=== PATIENT | male | born 1985 | race Caucasian/White ===

== ENCOUNTER 2019-05-29 19:29 | Inpatient (IN) | payer MEDICAID, OTHER ==
[~2019-05-29] VITALS: Ht 180.3 cm; Wt 105.9 kg
[2019-05-29] MEDS ORDERED: ONDANSETRON HCL 4 MG/2 ML VIAL IVP ONE (19:45)
[2019-05-29 19:48] VITALS: BP_SYST 147
[2019-05-29] MEDS ORDERED: ACETAMINOPHEN 325 MG TABLET PO ONE (20:00)
[2019-05-29] MEDS ORDERED: DIPHENHYDRAMINE INJ 50 MG/ML VIAL IVP ONE (20:00)
[2019-05-29] MEDS ORDERED: NS 500 ML IV ONE ×2 (20:00→22:00)
[2019-05-29 20:41] LABS: BASOPHILS # (AUTO) 0.1 K/uL (0.0-0.2); BASOPHILS % (AUTO) 0.8 % (0.0-2.0); EOSINOPHILS # (AUTO) 0.2 K/uL (0.0-0.4); EOSINOPHILS % (AUTO) 1.7 % (0.0-4.0); HEMATOCRIT 44.4 % (36-54); HEMOGLOBIN 14.8 g/dL (14.0-18.0); LYMPHOCYTES # (AUTO) 2.5 K/uL (1.0-5.5); MEAN CORPUSCULAR HEMOGLOBIN 26 pg (27-31); MEAN CORPUSCULAR HGB CONC 33 % (32-36); MEAN CORPUSCULAR VOLUME 78 fL (79.0-98.0); MONOCYTES # (AUTO) 0.7 K/uL (0.0-1.0); MONOCYTES % (AUTO) 5.1 % (1.7-9.3); NEUTROPHILS # (AUTO) 10.2 K/uL (1.8-7.7); NEUTROPHILS % (AUTO) 74.4 % (40.0-70.0); PLATELET COUNT (AUTO) 170 K/uL (130-430); RED BLOOD CELL COUNT(AUTO) 5.69 MIL/uL (4.2-6.2); RED CELL DISTRIBUTION WIDTH 13.8 % (9.0-15.0); WHITE BLOOD COUNT (AUTO) 13.7 K/uL (4.8-10.8)
[2019-05-29 20:55] LABS: CALCIUM 8.8 mg/dL (8.4-11.0); CREATININE 0.7 mg/dL (0.55-1.30); POTASSIUM 4.8 mmol/L (3.5-5.1)
[2019-05-29 21:04] LABS: ALBUMIN 3.8 g/dL (3.4-4.8); TOTAL BILIRUBIN 0.6 mg/dL (0.0-1.0)
[2019-05-29] MEDS ORDERED: fentaNYL CITRATE/PF 100 MCG/2 ML AMP IVP ONE (22:00)
[2019-05-29] MEDS ORDERED: LORazepam 2 MG/ML VIAL IVP ONE (22:30)
[2019-05-29 22:35] LABS: INR 0.9 (0.80-1.20); PROTHROMBIN TIME 9.5 SECS (9.5-12.5)
[2019-05-29] MEDS ORDERED: CYCL-10 PO (22:47)
[2019-05-29] MEDS ORDERED: METH5TAB2 PO (22:47)
[2019-05-29] MEDS ORDERED: DILT120C89 PO (22:47)
[2019-05-29] MEDS ORDERED: HYDR2TAB4 PO (22:47)
[2019-05-29] MEDS ORDERED: FLEC150T2 PO (22:47)
[2019-05-29] MEDS ORDERED: FEN12PAT TD (22:47)
[2019-05-29] MEDS ORDERED: OXYC15TA88 PO (22:47)
[2019-05-29] MEDS ORDERED: TIZA4TAB11 PO (22:47)
[2019-05-29] MEDS ORDERED: SOM350 PO (22:47)
[2019-05-29] MEDS ORDERED: HYDR50CA PO (22:47)
[2019-05-29] MEDS ORDERED: CLON0.3T PO (22:47)
[2019-05-29] MEDS ORDERED: NACL 0.9% 1,000 ML IV SCH (23:00)
[2019-05-29] MEDS ORDERED: METHADONE HCL 10 MG PO SCH (23:30)
[2019-05-30] VITALS (22 sets, daily range): BP systolic 105–192
[2019-05-30] MEDS ORDERED: DILTIAZEM HCL 25 MG/5 ML VIAL IVP PRN
[2019-05-30] MEDS ORDERED: TEMAZEPAM 15 MG CAPSULE PO PRN
[2019-05-30] MEDS: HYDROmorphone 1 MG INJ. 1 MG/ML AMPUL IVP PRN ×4 (01:27→16:20)
[2019-05-30] MEDS: DIPHENHYDRAMINE INJ 50 MG/ML VIAL IVP PRN ×5 (01:27→20:33)
[2019-05-30] MEDS: CARISOPRODOL 350 MG TABLET PO SCH ×5 (03:06→20:29)
[2019-05-30] MEDS: ONDANSETRON HCL 4 MG/2 ML VIAL IVP PRN ×3 (03:07→15:09)
[2019-05-30] MEDS ORDERED: CARISOPRODOL 350 MG TABLET ONE (03:15)
[2019-05-30] MEDS: DILTIAZEM HCL 120 MG CAP.SR.24H PO SCH ×3 (06:24→20:30)
[2019-05-30 07:08] LABS: BILIRUBIN,URINE NEGATIVE (NEGATIVE); BLOOD, URINE NEGATIVE (NEGATIVE); CLARITY/URINE CLEAR (CLEAR); COLOR,URINE YELLOW (YELLOW); GLUCOSE,URINE NEGATIVE (NEGATIVE); KETONES,URINE NEGATIVE (NEGATIVE); LEUKOCYTE ESTERASE ,URINE NEGATIVE (NEGATIVE); NITRITE, URINE NEGATIVE (NEGATIVE); PROTEIN URINE NEGATIVE (NEGATIVE); UROBILINOGEN,URINE 0.2 (0.2-1.0)
[2019-05-30 07:25] LABS: BARBITURATE, URINE NEGATIVE (NEG <=200); BENZODIAZEPINE, URINE POSITIVE (NEG <=150); CANNABINOID, URINE POSITIVE (NEG <=50); COCAINE, URINE NEGATIVE (NEG <=150); METHAMPHETAMINES SCREEN,URINE NEGATIVE (NEG <=500); OPIATE, URINE POSITIVE (NEG <=100); PHENCYCLIDINE SCREEN,URINE NEGATIVE (NEG <=25); URINE AMPHETAMINE NEGATIVE (NEG <=500); URINE METHADONE NEGATIVE (NEG <=200)
[2019-05-30 07:26] LABS: UR TRICYCLIC ANTIDEPRESSANTS POSITIVE (NEG <=300); URINE OXYCODONE SCREEN POSITIVE (NEG <=100); URINE PROPOXYPHENE SCREEN NEGATIVE (NEG <=300)
[2019-05-30] MEDS: FLECAINIDE ACETATE 50 MG TABLET (TAMBOCOR) PO SCH ×2 (08:59→20:31)
[2019-05-30] MEDS: cloNIDine HCL 0.1 MG TABLET PO SCH ×3 (09:00→20:32)
[2019-05-30] MEDS ORDERED: fentaNYL 50 MCG/HR PATCH TD SCH (09:00)
[2019-05-30 12:45] LABS: BASOPHILS # (AUTO) 0.1 K/uL (0.0-0.2); BASOPHILS % (AUTO) 0.7 % (0.0-2.0); EOSINOPHILS # (AUTO) 0.2 K/uL (0.0-0.4); EOSINOPHILS % (AUTO) 1.5 % (0.0-4.0); HEMATOCRIT 40.2 % (36-54); HEMOGLOBIN 13.2 g/dL (14.0-18.0); LYMPHOCYTES # (AUTO) 1.6 K/uL (1.0-5.5); LYMPHOCYTES % (AUTO) 13.7 % (20.5-51.5); MEAN CORPUSCULAR HEMOGLOBIN 26 pg (27-31); MEAN CORPUSCULAR HGB CONC 33 % (32-36); MEAN CORPUSCULAR VOLUME 78 fL (79.0-98.0); MONOCYTES # (AUTO) 0.8 K/uL (0.0-1.0); MONOCYTES % (AUTO) 6.2 % (1.7-9.3); NEUTROPHILS # (AUTO) 9.4 K/uL (1.8-7.7); NEUTROPHILS % (AUTO) 77.9 % (40.0-70.0); RED BLOOD CELL COUNT(AUTO) 5.15 MIL/uL (4.2-6.2); RED CELL DISTRIBUTION WIDTH 13.9 % (9.0-15.0); RETICULOCYTE COUNT 1.3 % (0.5-1.5)
[2019-05-30] MEDS: D5LR 1,000 ML IV SCH ×2 (13:12→19:44)
[2019-05-30 13:25] LABS: ALANINE AMINOTRANSFERASE 33 U/L (12-78); ALBUMIN 3.1 g/dL (3.4-4.8); ANION GAP 10 (5-15); ASPARTATE AMINOTRANSFERASE 22 U/L (10-37); CHLORIDE 105 mmol/L (98-107); CREATININE 0.88 mg/dL (0.55-1.30); FREE T4 (FREE THYROXINE) 1.1 ng/dl (0.8-1.5); GLUCOSE 115 mg/dL (70-99); POTASSIUM 3.8 mmol/L (3.5-5.1); SODIUM SERUM 141 mmol/L (136-145); THYROID STIMULATING HORMONE 1.01 uIu/mL (0.36-3.74); TOTAL BILIRUBIN 0.3 mg/dL (0.0-1.0); UREA NITROGEN, BLOOD 12 mg/dL (8-21)
[2019-05-30 13:28] LABS: GFR AFRICAN AMERICAN 128 mL/min (>90)
[2019-05-30 13:40] LABS: CHOLESTEROL 146 mg/dL (<200); HDL CHOLESTEROL 31 mg/dL (>45); LDL CHOLESTEROL 98 mg/dL (<100); TRIGLYCERIDES 143 mg/dL (30-150)
[2019-05-30 13:59] LABS: PLATELET COUNT (AUTO) 176 K/uL (130-430)
[2019-05-30] MEDS ORDERED: NEOMY SULF/BACITRAC ZN/POLY 28 GM OINT..GM. TP PRN (18:15)
[2019-05-30] MEDS ORDERED: HYDROmorphone 1 MG INJ. 1 MG/ML AMPUL IVP PRN (18:30)
[2019-05-30] MEDS ORDERED: cloNIDine HCL 0.1 MG TABLET PO PRN (18:30)
[2019-05-30] MEDS ORDERED: HYDROmorphone 2 MG TAB PO PRN (18:30)
[2019-05-30] MEDS: CEFEPIME 1 GM in D5W 50 ML IV SCH (18:41)
[2019-05-30] MEDS: ENOXAPARIN SODIUM 40 MG/0.4 ML SYRINGE SUBCUT ONE ×2 (18:44→19:03)
[2019-05-30] MEDS: VANCOMYCIN HCL 2,000 MG in NS 500 ML IV SCH (19:45)
[2019-05-30] MEDS ORDERED: COMMUNICATION ORDER XX PRN (20:30)
[2019-05-30] MEDS: HYDROmorphone 2 MG/ML VIAL IVP PRN (20:33)
[2019-05-31] VITALS (19 sets, daily range): BP systolic 83–138
[2019-05-31] MEDS: HYDROmorphone 2 MG/ML VIAL IVP PRN ×3 (01:30→10:12)
[2019-05-31] MEDS: DIPHENHYDRAMINE INJ 50 MG/ML VIAL IVP PRN ×4 (01:30→14:57)
[2019-05-31] MEDS ORDERED: DIPHENHYDRAMINE INJ 50 MG/ML VIAL ONE ×2 (01:38→05:51)
[2019-05-31] MEDS: D5LR 1,000 ML IV SCH ×2 (05:46→14:57)
[2019-05-31] MEDS: CEFEPIME 1 GM in D5W 50 ML IV SCH (05:47)
[2019-05-31 06:12] LABS: BASOPHILS % (AUTO) 0.3 % (0.0-2.0); EOSINOPHILS # (AUTO) 0.2 K/uL (0.0-0.4); EOSINOPHILS % (AUTO) 1.9 % (0.0-4.0); HEMATOCRIT 32.3 % (36-54); HEMOGLOBIN 10.7 g/dL (14.0-18.0); LYMPHOCYTES # (AUTO) 1.9 K/uL (1.0-5.5); LYMPHOCYTES % (AUTO) 19.3 % (20.5-51.5); MEAN CORPUSCULAR HEMOGLOBIN 26 pg (27-31); MEAN CORPUSCULAR HGB CONC 33 % (32-36); MEAN CORPUSCULAR VOLUME 80 fL (79.0-98.0); MONOCYTES # (AUTO) 0.9 K/uL (0.0-1.0); NEUTROPHILS # (AUTO) 6.7 K/uL (1.8-7.7); NEUTROPHILS % (AUTO) 69.5 % (40.0-70.0); PLATELET COUNT (AUTO) 164 K/uL (130-430); RED BLOOD CELL COUNT(AUTO) 4.04 MIL/uL (4.2-6.2); RED CELL DISTRIBUTION WIDTH 13.3 % (9.0-15.0); WHITE BLOOD COUNT (AUTO) 9.7 K/uL (4.8-10.8)
[2019-05-31 06:31] LABS: ALBUMIN 2.2 g/dL (3.4-4.8); CALCIUM 7.6 mg/dL (8.4-11.0); POTASSIUM 3.8 mmol/L (3.5-5.1); TOTAL BILIRUBIN 0.6 mg/dL (0.0-1.0)
[2019-05-31 06:39] LABS: TOTAL IRON BIND. CAPACITY 157 ug/dL (250-450)
[2019-05-31] MEDS: VANCOMYCIN HCL 2,000 MG in NS 500 ML IV SCH (06:41)
[2019-05-31] MEDS ORDERED: fentaNYL 12 MCG/HR PATCH TD SCH (09:00)
[2019-05-31] MEDS ORDERED: FAMOTIDINE 20 MG TABLET PO SCH (09:00)
[2019-05-31] MEDS ORDERED: ENOXAPARIN SODIUM 40 MG/0.4 ML SYRINGE SUBCUT SCH (09:00)
[2019-05-31] MEDS ORDERED: FENTANYL TRANSDERMAL TD SCH (09:00)
[2019-05-31] MEDS: cloNIDine HCL 0.1 MG TABLET PO SCH ×2 (09:18→14:58)
[2019-05-31] MEDS: DILTIAZEM HCL 120 MG CAP.SR.24H PO SCH (09:20)
[2019-05-31] MEDS: CARISOPRODOL 350 MG TABLET PO SCH ×2 (09:20→14:47)
[2019-05-31 10:04] LABS: ANION GAP 7 (5-15); CHLORIDE 107 mmol/L (98-107); GLUCOSE 119 mg/dL (70-99); POTASSIUM 4.3 mmol/L (3.5-5.1); SODIUM SERUM 140 mmol/L (136-145); UREA NITROGEN, BLOOD 9 mg/dL (8-21)
[2019-05-31 10:07] LABS: GFR AFRICAN AMERICAN 143 mL/min (>90)
[2019-05-31 10:09] LABS: TOTAL IRON BIND. CAPACITY 209 ug/dL (250-450)
[2019-05-31] MEDS: FLECAINIDE ACETATE 50 MG TABLET (TAMBOCOR) PO SCH (10:11)
[2019-05-31 10:12] LABS: ALANINE AMINOTRANSFERASE 34 U/L (12-78); ALBUMIN 2.8 g/dL (3.4-4.8); ASPARTATE AMINOTRANSFERASE 28 U/L (10-37); TOTAL BILIRUBIN 0.8 mg/dL (0.0-1.0)
[2019-05-31 10:17] LABS: THYROID STIMULATING HORMONE 0.94 uIu/mL (0.36-3.74)
[2019-05-31 11:39] LABS: BASOPHILS % (AUTO) 0.3 % (0.0-2.0); EOSINOPHILS # (AUTO) 0.2 K/uL (0.0-0.4); EOSINOPHILS % (AUTO) 1.9 % (0.0-4.0); HEMOGLOBIN 12.2 g/dL (14.0-18.0); LYMPHOCYTES # (AUTO) 2.3 K/uL (1.0-5.5); LYMPHOCYTES % (AUTO) 21.2 % (20.5-51.5); MEAN CORPUSCULAR HEMOGLOBIN 26 pg (27-31); MEAN CORPUSCULAR HGB CONC 33 % (32-36); MEAN CORPUSCULAR VOLUME 79 fL (79.0-98.0); MONOCYTES # (AUTO) 0.9 K/uL (0.0-1.0); MONOCYTES % (AUTO) 7.9 % (1.7-9.3); NEUTROPHILS # (AUTO) 7.6 K/uL (1.8-7.7); NEUTROPHILS % (AUTO) 68.7 % (40.0-70.0); PLATELET COUNT (AUTO) 186 K/uL (130-430); RED CELL DISTRIBUTION WIDTH 13.4 % (9.0-15.0)
[2019-05-31] MEDS ORDERED: HYDROmorphone 2 MG TAB PO PRN (14:45)
[2019-05-31] MEDS ORDERED: FERROUS SULFATE 325 MG TABLET.DR PO SCH (15:00)
[2019-05-31] MEDS ORDERED: HYDROmorphone 2 MG/ML VIAL IVP ONE (16:00)
[2019-05-31] MEDS ORDERED: DOXY100C PO (16:06)
[2019-05-31] MEDS: ONDANSETRON HCL 4 MG/2 ML VIAL IVP PRN ×2 (16:13→16:17)
[2019-05-31] MEDS ORDERED: CEPH-568 PO (16:55)
[2019-06-02 07:19] LABS: HAPTOGLOBIN 235 mg/dL (34-200)
== END 2019-05-31 18:10 | disposition home or self-care (01) | DRG 206 ==
LOC: SED 19:29 → STU 22:54 → SIC 23:32
PROVIDERS: ADMIT Internal Medicine; ATTEND Internal Medicine
PROC: 05H933Z Insertion of Infusion Device into Right Brachial Vein, Percutaneous Approach (ICD-10-PCS; principal; 2019-05-30)
PROC: B54MZZA Ultrasonography of Right Upper Extremity Veins, Guidance (ICD-10-PCS; 2019-05-30)
DX: M94.0 Chondrocostal junction syndrome [Tietze] (principal); I47.1 Supraventricular tachycardia; D57.1 Sickle-cell disease without crisis; F32.9 Major depressive disorder, single episode, unspecified; G89.4 Chronic pain syndrome; I10 Essential (primary) hypertension; E66.01 Morbid (severe) obesity due to excess calories; G47.00 Insomnia, unspecified; Z82.49 Family history of ischemic heart disease and other diseases of the circulatory system; Z86.711 Personal history of pulmonary embolism; Z86.718 Personal history of other venous thrombosis and embolism; Z90.49 Acquired absence of other specified parts of digestive tract; Z79.899 Other long term (current) drug therapy; Z88.8 Allergy status to other drugs, medicaments and biological substances; Z88.5 Allergy status to narcotic agent; Z88.6 Allergy status to analgesic agent; Z88.1 Allergy status to other antibiotic agents; Z98.1 Arthrodesis status
CPT/HCPCS: 36415; 71045; 80053; 80061; 80307; 81003; 82607; 82746; 82962; 83010; 83021; 83540-TC; 83550-TC; 83605; 83615-TC; 83880; 84439; 84443-TC; 84484; 85025; 85044-TC; 85379; 85384-TC; 85610-TC; 85660; 85730-TC; 87040-TC; 87081; 93005; 93306; 96374; 96375; 99285; C1751; J0692; J1170; J1200; J1650; J2060; J2405; J3010; J3370; J7030; J7040; J7060; J7120